=== PATIENT | male | born 1995 | race Caucasian/White ===

== ENCOUNTER 2018-05-27 09:57 | Emergency (ER) | payer BC ==
[~2018-05-27] VITALS: Wt 87.0 kg
[2018-05-27] MEDS ORDERED: morphine 2 MG INJ IV STA (10:38)
[2018-05-27] MEDS ORDERED: KETOROLAC 30 MG INJ IV STA (10:38)
[2018-05-27] MEDS ORDERED: SOD CHLORIDE 0.9% 1,000 ML IV STA (10:38)
[2018-05-27] MEDS ORDERED: ONDANSETRON 4 MG INJ IV STA (10:38)
[2018-05-27] MEDS ORDERED: AMPICILLIN/SULB 1.5GM/NS (PMX) 50 ML IVPB STA (10:38)
[2018-05-27] MEDS ORDERED: DEXAMETHASONE 10 MG/ML 1 ML INJ IV ONE (11:00)
[2018-05-27] MEDS ORDERED: IOHEXOL 300MG/ML 150 ML BTL ONE (11:53)
[2018-05-27] MEDS ORDERED: SOD CHLORIDE 0.9% 100 ML ONE (11:53)
[2018-05-27] MEDS ORDERED: AMOX1TAB10 PO (13:26)
[2018-05-27] MEDS ORDERED: CLIN300C10 PO (13:26)
[2018-05-27] MEDS ORDERED: IBUP800T48 PO (13:26)
[2018-05-27] MEDS ORDERED: MED4DP PO (13:27)
[2018-05-27 13:36] VITALS: BP 118/72; PULSE 82; RESP 16
--- NOTE | 2018-05-27 13:39 | ERD ---
ER Documentation Chief Complaint Chief Complaint NECK/EAR PAIN X 4-5 DAYS HPI This is a very pleasant 22-year-old male with no past medical history the presents to the emergency department complaining of right-sided neck pain and ear pain for roughly 5 days. The patient states his symptoms have progressively worsened. He has difficulty swallowing. He denies any changes in phonation of his voice. He has had a low-grade fever but did not take any antipyretics. He denies a sore throat. He denies a headache. He denies any toothache or recent dental work. ROS All systems reviewed and are negative except as per history of present illness. Medications Home Meds Active Scripts Methylprednisolone* (Medrol* DOSE PACK) 4 Mg/Dose-Pack Tab.ds.pk, 4 MG PO . DIRECTED, #1 PACKET Prov:YVONNE HAMMOND MD 05/27/18 Ibuprofen* (Motrin*) 800 Mg Tab, 800 MG PO Q6H PRN for PAIN AND OR ELEVATED TEMP, #30 TAB Prov:YVONNE HAMMOND MD 05/27/18 Clindamycin Hcl* (Clindamycin Hcl*) 300 Mg Capsule, 300 MG PO TID for 10 Days, CAP Prov:YVONNE HAMMOND MD 05/27/18 Amoxicillin/Potassium Clav (Amox-Clav 875-125 mg Tablet) 875-125 mg Tab, 1 TAB PO BID for 10 Days, #20 TAB Prov:VYONNE HAMMOND MD 05/27/18 Allergies Allergies: Coded Allergies: No Known Allergy (Unverified , 05/27/18) PMhx/Soc Medical and Surgical Hx: pt denies Medical Hx, pt denies Surgical Hx Hx Alcohol Use: No Hx Substance Use: No Hx Tobacco Use: No Smoking Status: Never smoker Physical Exam Vitals Vital Signs Date Temp Pulse Resp B/P (MAP) Pulse Ox O2 O2 Flow FiO2 Time Delivery Rate 05/27/18 84 18 108/73 98 Room Air 12:00 (85) 05/27/18 92 19 122/75 Room Air 11:00 (91) 05/27/18 91 12 120/74 98 Room Air 10:15 (89) 05/27/18 100.9 122 18 122/71 95 10:07 (88) Physical Exam Constitutional:Well-developed. Well-nourished. HEENT:Normocephalic. Atraumatic.Pupils were equal round reactive to light. Dry mucous membranes. Uvula midline. Mild trismus. No stridor. Enlargement of the right tonsil with tonsillar exudates. Neck: No nuchal rigidity. Tender right anterior cervical lymphadenopathy. No posterior cervical spine tenderness or step-offs. Respiratory: Not using accessory muscles of respiration.Lungs were clear to auscultation bilaterally. No rhonchi. No rales. No wheezing. Cardiovascular: Regular rate regular rhythm.No murmurs. No rubs were appreciated.S1, S2 normal. Distal pulses are palpable 2+ bilaterally. GI: Abdomen was soft. Nontender. Non Distended. No pulsatile abdominal masses or bruits. No rebound. No guarding. Bowel sounds were present and normal. Muscle skeletal: Full range of motion of both the upper and lower extremities bilaterally.Normal muscle tone.No assymetrical calf tenderness or swelling. Skin: No petechia, no purpura. No lesions on the palms or the soles of the feet. No maculopapular rash. NEURO: Patient was alert, awake, orientated x3.No facial droop. Gait observed and normal with no ataxia.Speech had regular rate and rhythm. No focal neurological deficits. Result Diagram: 05/27/18 1056 05/27/18 1056 Results 24 hrs Laboratory Tests Test 05/27/18 10:56 White Blood Count 10.0 10^3/ul Red Blood Count 4.24 10^6/ul Hemoglobin 12.6 g/dl Hematocrit 37.4 % Mean Corpuscular Volume 88.2 fl Mean Corpuscular Hemoglobin 29.7 pg Mean Corpuscular Hemoglobin Concent 33.7 g/dl Red Cell Distribution Width 12.3 % Platelet Count 156 10^3/UL Mean Platelet Volume 10.3 fl Immature Granulocytes % 0.700 % Neutrophils % 79.0 % Lymphocytes % 9.3 % Monocytes % 10.6 % Eosinophils % 0.2 % Basophils % 0.2 % Nucleated Red Blood Cells % 0.0 /100WBC Immature Granulocytes # 0.070 10^3/ul Neutrophils # 7.9 10^3/ul Lymphocytes # 0.9 10^3/ul Monocytes # 1.1 10^3/ul Eosinophils # 0.0 10^3/ul Basophils # 0.0 10^3/ul Nucleated Red Blood Cells # 0.0 10^3/ul Sodium Level 138 mmol/L Potassium Level 4.3 mmol/L Chloride Level 95 mmol/L Carbon Dioxide Level 29 mmol/L Anion Gap 14 Blood Urea Nitrogen 16 mg/dl Creatinine 0.75 mg/dl Est Glomerular Filtrat Rate mL/min > 60 mL/min Glucose Level 109 mg/dl Calcium Level 9.3 mg/dl Total Bilirubin 0.7 mg/dl Direct Bilirubin 0.00 mg/dl Indirect Bilirubin 0.7 mg/dl Aspartate Amino Transf (AST/SGOT) 17 IU/L Alanine Aminotransferase (ALT/SGPT) < 6 IU/L Alkaline Phosphatase 78 IU/L Total Protein 7.9 g/dl Albumin 4.1 g/dl Globulin 3.80 g/dl Albumin/Globulin Ratio 1.07 Current Medications Medications Dose Sig/Monica Start Time Status Last (Trade) Ordered Route PRN Stop Time Admin Dose Reason Admin Sodium 1,000 ml @ Q1H STAT 05/27/18 DC 05/27/18 Chloride 1,000 mls/hr IV 10:38 10:38 05/27/18 11:37 Morphine 2 mg ONCE STAT 05/27/18 DC 05/27/18 Sulfate IV 10:38 12:29 (morphine) 05/27/18 10:42 Ondansetron 4 mg ONCE STAT 05/27/18 DC 05/27/18 HCl (Zofran IV 10:38 12:29 Inj) 05/27/18 10:42 Ketorolac 30 mg ONCE STAT 05/27/18 DC 05/27/18 Tromethamine IV 10:38 11:01 (Toradol) 05/27/18 10:42 Ampicillin 50 ml @ ONCE STAT 05/27/18 DC 05/27/18 Sodium/ 100 mls/hr IVPB 10:38 10:50 Sulbactam 05/27/18 11:07 Sodium 10 mg ONCE ONCE 05/27/18 DC 05/27/18 Dexamethasone IV 11:00 11:03 (Decadron) 05/27/18 11:01 Sodium 100 ml @ ud STK-MED 05/27/18 DC Chloride ONCE .ROUTE 11:53 05/27/18 11:54 Iohexol 150 ml STK-MED 05/27/18 DC (Omnipaque ONCE .ROUTE 11:53 300mg/ ml) 05/27/18 11:54 Procedures/MDM This is a 22-year-old male that presented to the emergency department with a right peritonsillar abscess and right anterior cervical lymphadenopathy with low-grade fever. The patient had a rapid strep that was found to be normal. The patient had mild trismus but no brawny induration or other physical exam findings or risk factors to suggest Trevor's angina. The patient had IV access established and was given IV Unasyn as well as IV Decadron. He was given Toradol and morphine for analgesic control. I obtained a CT scan with contrast of the patient's neck which was reviewed by the radiologist and indicated the following: Contrast-enhanced CT of the neck demonstrates presence of large phlegmon involving the adenoid tonsils and palatine tonsils with extensive mucosal wall thickening narrowing the nasopharynx and oropharynx with mass effect on the hypopharynx to left. There is an associated fluid collection within the retropharyngeal space with enhancement along the posterior wall likely representing an early retropharyngeal abscess. There is a right-sided reactive lymphadenopathy with extensive inflammatory changes with fluid and fat stranding. Observation Note: Time: 4 hours Family Hx: No Hypertension Evaluation: Multiple exams showed improving symptoms and no evidence of worsening of his conditions. The patient was with his family and was very adamant that he did not want to stay in the hospital. I indicated to the patient as well as his family multiple times the seriousness of his condition and that I did feel he required admission for continuation of IV antibiotics due to an early retropharyngeal abscess. However the patient stated he has very good outpatient follow-up and would be able to see an ENT I would return to the emergency department immediate there is any worsening of his conditions. Again the patient had no physical exam findings at this time to suggest Trevor angina. He no longer had any trismus after given the analgesic medication. He received IV fluids due to mild clinical dehydration. He was able to tolerate oral intakes at the time of discharge. He was given a prescription of antibiotics low-dose steroids and Motrin for analgesic control. The patient was refusing an incision and drainage at this time and did state that he would prefer to again a ttempt a trial of oral antibiotics at home Departure Diagnosis: Primary Impression: Peritonsillar abscess Additional Impression: Retropharyngeal abscess Condition: Fair Patient Instructions: Peritonsillar Infection Abx Only, No I And D YVONNE HAMMOND MD May 27, 2018 13:39
== END 2018-05-27 13:38 | disposition home or self-care (01) ==
LOC: FTE 09:57 → E/R 13:38
DX: J36 Peritonsillar abscess (principal)
CPT/HCPCS: 70491; 80053; 85025; 96374; 96375; J0295; J1100; J1885; J2270; J2405; J7030; Q9967; Z7502; Z7610